=== PATIENT | female | born 1945 | race Caucasian/White ===

== ENCOUNTER 2017-02-07 17:54 | Observation (INO) | payer BC, MEDICARE ==
[~2017-02-07] VITALS: Ht 157.5 cm; Wt 70.0 kg
[~2017-02-07 17:54] MED LIST: ALBUPOW38 PO; ATOR10 PO; LEVA500T33 PO; PRED20 PO; TOPR50TA PO; VENTAER INH
--- NOTE | 2017-02-07 17:55 | PD ---
HPI Chief Complaint: shortness of breath Time Seen by Provider: 17:55 Travel History International Travel<30 days: No Contact w/Intl Traveler<30days: No Traveled to known affect area: No History of Present Illness HPI 71-year-old female came to the emergency room brought by EMS with history of progressive shortness of breath for past few days. Patient says that she was not feeling too well the past few days and thought she probably had worsening asthma. She also had some chills at night. Today she had gone out to have dinner with her friend when while driving she started getting short of breath with palpitations. She started feeling intense chest pressure retrosternally. At that point she decided to stop driving after which she thinks she almost passed out. She was found by friends slumped over the steering wheel and intensely diaphoretic. Currently patient says that feeling has subsided. However she does seem anxious. Patient has history of asthma. She had taken few days of her son's steroid pills. Vital signs are within normal limit. [facility] Past Medical History Narrative Medical List of her past medical, surgical, social and family history was reviewed from the nursing note. Cerebrovascular Accident: Yes (1999 TIA) Diminished Hearing: No Hypertension: Yes Past Surgical History Other Surgery: Yes (C SPINE SX 4 SCREWS) Social History Alcohol Use: No Tobacco Use: No Substance Use: No Allergies-Medications (Allergen,Severity, Reaction): Coded Allergies: No Known Allergies (Verified , 05/28/14) Comments No known drug allergies. Reported Meds & Prescriptions Reported Meds & Active Scripts Active Ventolin Hfa (Albuterol Sulfate) 18 Gm Aero 2 Puff INH Q4HPRN * SHAKE WELL BEFORE USE * Reported [hypertension] Aspirin 81 Mg Chew 81 Mg CHEW DAILY Lipitor (Atorvastatin Calcium) 10 Mg Tab 0 PO DAILY UNKNOWN DOSE Toprol Xl (Metoprolol Succinate) 50 Mg Tabcr 50 Mg PO DAILY Narrative Medication List of her home medications reviewed from the nursing note. Review of Systems Except as stated in HPI: all other systems reviewed are Neg Physical Exam Narrative GENERAL: Awake, alert, moderate distress, SKIN: Focused skin assessment warm/dry. HEAD: Atraumatic. Normocephalic. EYES: Pupils equal and round. No scleral icterus. No injection or drainage. ENT: No nasal bleeding or discharge. Mucous membranes pink and moist. NECK: Trachea midline. No JVD. CARDIOVASCULAR: Regular rate and rhythm. No murmur appreciated. RESPIRATORY: No accessory muscle use. Clear to auscultation. Breath sounds equal bilaterally. GASTROINTESTINAL: Abdomen soft, non-tender, nondistended. Hepatic and splenic margins not palpable. MUSCULOSKELETAL: No obvious deformities. No clubbing. No cyanosis. No edema. NEUROLOGICAL: Awake and alert. No obvious cranial nerve deficits. Motor grossly within normal limits. Normal speech. PSYCHIATRIC: Appropriate mood and affect; insight and judgment normal. Data Data Last Documented VS Vital Signs Date Time Temp Pulse Resp B/P Pulse Ox O2 Delivery O2 Flow Rate FiO2 02/07/17 18:21 88 18 184/97 98 Room Air 02/07/17 17:56 98.4 Orders Electrocardiogram (02/07/17 18:18) Basic Metabolic Panel (Bmp) (02/07/17 18:18) Ckmb (Isoenzyme) Profile (02/07/17 18:18) Complete Blood Count With Diff (02/07/17 18:18) Magnesium (Mg) (02/07/17 18:18) Prothrombin Time / Inr (Pt) (02/07/17 18:18) Troponin I (02/07/17 18:18) Chest, Single Ap (02/07/17 18:18) Ecg Monitoring (02/07/17 18:18) Bilateral Bp Monitoring (02/07/17 18:18) Iv Access Insert/Monitor (02/07/17 18:18) Oximetry (02/07/17 18:18) Oxygen Administration (02/07/17 18:18) Sodium Chloride 0.9% Flush (Ns Flush) (02/07/17 18:30) Ct Pulmonary Angiogram (02/07/17 18:18) B-Type Natriuretic Peptide (02/07/17 18:18) Admit Order (Ed Use Only) (02/07/17 21:52) Labs Laboratory Tests Test 02/07/17 18:10 White Blood Count 7.4 TH/MM3 Red Blood Count 4.22 MIL/MM3 Hemoglobin 12.6 GM/DL Hematocrit 37.2 % Mean Corpuscular Volume 88.1 FL Mean Corpuscular Hemoglobin 29.8 PG Mean Corpuscular Hemoglobin 33.9 % Concent Red Cell Distribution Width 13.5 % Platelet Count 279 TH/MM3 Mean Platelet Volume 8.9 FL Neutrophils (%) (Auto) 84.1 % Lymphocytes (%) (Auto) 12.9 % Monocytes (%) (Auto) 2.5 % Eosinophils (%) (Auto) 0.0 % Basophils (%) (Auto) 0.5 % Neutrophils # (Auto) 6.2 TH/MM3 Lymphocytes # (Auto) 1.0 TH/MM3 Monocytes # (Auto) 0.2 TH/MM3 Eosinophils # (Auto) 0.0 TH/MM3 Basophils # (Auto) 0.0 TH/MM3 CBC Comment DIFF FINAL Differential Comment Prothrombin Time 11.0 SEC Prothromb Time International 1.0 RATIO Ratio Sodium Level 140 MEQ/L Potassium Level 3.7 MEQ/L Chloride Level 103 MEQ/L Carbon Dioxide Level 25.8 MEQ/L Anion Gap 11 MEQ/L Blood Urea Nitrogen 19 MG/DL Creatinine 0.87 MG/DL Estimat Glomerular Filtration 65 ML/MIN Rate Random Glucose 109 MG/DL Calcium Level 9.2 MG/DL Magnesium Level 2.4 MG/DL Total Creatine Kinase 95 U/L Troponin I LESS THAN 0.02 NG/ML B-Type Natriuretic Peptide 30 PG/ML MDM Medical Decision Making Medical Screen Exam Complete: Yes Emergency Medical Condition: Yes Medical Record Reviewed: Yes Interpretation(s) Twelve-lead EKG was reviewed by me. Normal sinus rhythm, normal axis, nonspecific ST-T wave changes. Heart rate of 63 bpm Differential Diagnosis PE, ACS, non-STEMI, pneumonia Narrative Course 6:26 PM awaiting for the blood test results. I've ordered a CT pulmonary angiogram. If the renal function permits this test will be done. Case most probably will be signed out to the oncoming ER physician to follow-up on these results. In my opinion patient will require to be admitted at least and chest pain center. Procedures EKG Prior to Arrival: Eric Crawford MD February 07, 2017 17:55
[2017-02-07 17:56] VITALS: BP 194/81; PULSE 66; RESP 16; TEMP 98.4; O2SAT 99
[2017-02-07] MEDS ORDERED: ASPI81CH CHEW ×2 (18:15)
[2017-02-07] MEDS ORDERED: hypertension (18:17)
[2017-02-07 18:21] VITALS: BP 184/97; PULSE 88; RESP 18; O2SAT 98
[2017-02-07] MEDS ORDERED: SODIUM CHLORIDE 0.9% FLUSH 10 ML FLUSH IVF PRN (18:30)
--- NOTE | 2017-02-07 18:35 | RADRPT ---
EXAM DATE/TIME: 02/07/2017 18:27 [facility] COMPARISON: CHEST SINGLE AP, May 28, 2014, 1:47. INDICATIONS : Chest pain. MEDICAL HISTORY : None. SURGICAL HISTORY : None. ENCOUNTER: Initial ACUITY: 1 day PAIN SCORE: 0/10 LOCATION: Bilateral chest FINDINGS: A single view of the chest demonstrates the lungs to be symmetrically aerated without evidence of mas s, infiltrate or effusion. The cardiomediastinal contours are unremarkable. Osseous structures are intact. CONCLUSION: No acute disease. Benjamín Saucedo MD FACR on February 07, 2017 at 18:33 Board Certified Radiologist. This report was verified electronically.
[2017-02-07 18:39] LABS: AUTOMATED NEUTROPHIL # 6.2 TH/MM3 (1.8-7.7); BASOPHIL % 0.5 % (0.0-2.0); HEMATOCRIT 37.2 % (35.0-46.0); HEMO FLAGS DIFF FINAL; LYMPH % 12.9 % (9.0-44.0); MEAN CELL VOLUME 88.1 FL (80.0-100.0); MEAN CORPUSCULAR HEMOGLOBIN 29.8 PG (27.0-34.0); MEAN CORPUSCULAR HGB CONC 33.9 % (32.0-36.0); MONO % 2.5 % (0.0-8.0); NEUT % 84.1 % (16.0-70.0); PLATELET COUNT 279 TH/MM3 (150-450); RED BLOOD COUNT 4.22 MIL/MM3 (4.00-5.30); RED CELL DISTRIBUTION WIDTH 13.5 % (11.6-17.2); WHITE BLOOD COUNT 7.4 TH/MM3 (4.0-11.0)
[2017-02-07 19:58] LABS: ANION GAP 11 MEQ/L (5-15); BICARBONATE 25.8 MEQ/L (21.0-32.0); BLOOD UREA NITROGEN 19 MG/DL (7-18); CHLORIDE 103 MEQ/L (98-107); GLOMERULAR FILTRATION RATE 65 ML/MIN (>89); MAGNESIUM 2.4 MG/DL (1.5-2.5); POTASSIUM 3.7 MEQ/L (3.5-5.1); SODIUM (NA) 140 MEQ/L (136-145)
[2017-02-07 20:07] LABS: CREATINE KINASE 95 U/L (26-192)
--- NOTE | 2017-02-07 20:59 | PD ---
Data Data Last Documented VS Vital Signs Date Time Temp Pulse Resp B/P Pulse Ox O2 Delivery O2 Flow Rate FiO2 02/07/17 18:21 88 18 184/97 98 Room Air 02/07/17 17:56 98.4 Orders Electrocardiogram (02/07/17 18:18) Basic Metabolic Panel (Bmp) (02/07/17 18:18) Ckmb (Isoenzyme) Profile (02/07/17 18:18) Complete Blood Count With Diff (02/07/17 18:18) Magnesium (Mg) (02/07/17 18:18) Prothrombin Time / Inr (Pt) (02/07/17 18:18) Troponin I (02/07/17 18:18) Chest, Single Ap (02/07/17 18:18) Ecg Monitoring (02/07/17 18:18) Bilateral Bp Monitoring (02/07/17 18:18) Iv Access Insert/Monitor (02/07/17 18:18) Oximetry (02/07/17 18:18) Oxygen Administration (02/07/17 18:18) Sodium Chloride 0.9% Flush (Ns Flush) (02/07/17 18:30) Ct Pulmonary Angiogram (02/07/17 18:18) B-Type Natriuretic Peptide (02/07/17 18:18) Labs Laboratory Tests Test 02/07/17 18:10 White Blood Count 7.4 TH/MM3 Red Blood Count 4.22 MIL/MM3 Hemoglobin 12.6 GM/DL Hematocrit 37.2 % Mean Corpuscular Volume 88.1 FL Mean Corpuscular Hemoglobin 29.8 PG Mean Corpuscular Hemoglobin 33.9 % Concent Red Cell Distribution Width 13.5 % Platelet Count 279 TH/MM3 Mean Platelet Volume 8.9 FL Neutrophils (%) (Auto) 84.1 % Lymphocytes (%) (Auto) 12.9 % Monocytes (%) (Auto) 2.5 % Eosinophils (%) (Auto) 0.0 % Basophils (%) (Auto) 0.5 % Neutrophils # (Auto) 6.2 TH/MM3 Lymphocytes # (Auto) 1.0 TH/MM3 Monocytes # (Auto) 0.2 TH/MM3 Eosinophils # (Auto) 0.0 TH/MM3 Basophils # (Auto) 0.0 TH/MM3 CBC Comment DIFF FINAL Differential Comment Prothrombin Time 11.0 SEC Prothromb Time International 1.0 RATIO Ratio Sodium Level 140 MEQ/L Potassium Level 3.7 MEQ/L Chloride Level 103 MEQ/L Carbon Dioxide Level 25.8 MEQ/L Anion Gap 11 MEQ/L Blood Urea Nitrogen 19 MG/DL Creatinine 0.87 MG/DL Estimat Glomerular Filtration 65 ML/MIN Rate Random Glucose 109 MG/DL Calcium Level 9.2 MG/DL Magnesium Level 2.4 MG/DL Total Creatine Kinase 95 U/L Troponin I LESS THAN 0.02 NG/ML B-Type Natriuretic Peptide 30 PG/ML MDM Supervised Visit with SACHIN: No Narrative Course Patient's endotracheal by previous provider. Please see associated no for further details. In short patient is a 71-year-old female here with complaint of shortness of breath, some chills, palpitations and a near syncopal episode. Previous provider had strong concern for pulmonary embolism versus arrhythmia versus ACS. Signed out to me pending labs and CT pulmonary exam for ultimate admission to medicine. Laboratory workup unremarkable. CT pulmonary angiogram showed no evidence of PE. Degenerative changes of the thoracic spine. Patient will be admitted to medicine for telemetry and cardiac enzymes. Diagnosis Primary Impression: Near syncope Additional Impression: Shortness of breath Admitting Information Admitting Physician Requests: Observation Shanna Escudero MD February 07, 2017 20:59
[2017-02-07] MEDS ORDERED: IOHEXOL 350 MG/ML 10 ML VIAL (for RAD DIAG) IV ONE (21:19)
--- NOTE | 2017-02-07 21:34 | RADRPT ---
EXAM DATE/TIME: 02/07/2017 21:19 [facility] COMPARISON: No previous studies available for comparison. INDICATIONS : Shortness of breath with substernal chest pain for several days. IV CONTRAST: 74 cc Omnipaque 350 (iohexol) IV RADIATION DOSE: 14.32 CTDIvol (mGy) MEDICAL HISTORY : Hypertension. SURGICAL HISTORY : Fusion, cervical. ENCOUNTER: Initial ACUITY: 3 days PAIN SCALE: 6/10 LOCATION: chest TECHNIQUE: Volumetric scanning of the chest was performed using a pulmonary embolism protocol MIP images were re constructed. Using automated exposure control and adjustment of the mA and/or kV according to patien t size, radiation dose was kept as low as reasonably achievable to obtain optimal diagnostic quality images. FINDINGS: The lungs are clear. There is no axillary or mediastinal adenopathy. There is no central pulmonary emboli There is no pericardial effusion or coronary calcifications. That portion of the liver and spleen identified are free of focal defects. Moderate degenerative changes are present in the thoracic spine. CONCLUSION: 1. Negative or central pulmonary emboli 2. Moderate degenerative changes in the thoracic spine. 3. There are no coronary calcifications or pericardial effusion. Benjamín Saucedo MD FACR on February 07, 2017 at 21:30 Board Certified Radiologist. This report was verified electronically.
[2017-02-07 21:57] VITALS: BP 188/75; PULSE 52; RESP 14; O2SAT 95
[2017-02-07] MEDS ORDERED: NALOXONE HCL 0.4 MG/ML AMP IV PRN (23:30)
[2017-02-07] MEDS ORDERED: SENNOSIDES 8.6 MG TAB PO PRN (23:30)
[2017-02-07] MEDS ORDERED: ACETAMINOPHEN 325 MG TAB PO PRN (23:30)
[2017-02-07] MEDS ORDERED: SODIUM CHLORIDE 0.9% FLUSH 10 ML FLUSH IV FLUSH PRN (23:30)
[2017-02-07] MEDS ORDERED: ONDANSETRON HCL 4 MG/2 ML VIAL IVP PRN (23:30)
[2017-02-07] MEDS: SODIUM CHLOR 0.9% 1000 ML INJ 1,000 ML IV SCH (23:53)
[2017-02-07] MEDS: ASPIRIN EC 81 MG TABEC PO SCH (23:53)
[2017-02-07] MEDS: HEPARIN SODIUM - SQ 10,000 UNITS/ML VIAL SQ SCH (23:53)
[2017-02-07 23:54] VITALS: BP 161/68; PULSE 53; RESP 14; O2SAT 98
[2017-02-08] VITALS (10 sets, daily range): BP systolic 134–173; BP diastolic 62–76; PULSE 46–70; RESP 16–20; TEMP 97.8–98.2; O2SAT 94–100
[2017-02-08] MEDS ORDERED: ENALAPRILAT 1.25 MG/ML VIAL IV PUSH PRN (01:30)
[2017-02-08] MEDS ORDERED: amLODIPine BESYLATE 5 MG TAB PO ONE (02:00)
[2017-02-08] MEDS: amLODIPine BESYLATE 5 MG TAB PO SCH (08:25)
[2017-02-08] MEDS: ASPIRIN EC 81 MG TABEC PO SCH (08:25)
[2017-02-08] MEDS: SODIUM CHLORIDE 0.9% FLUSH 10 ML FLUSH IV FLUSH SCH ×2 (08:27→21:00)
--- NOTE | 2017-02-08 08:57 | MH ---
cc: JACEK MARTIN MD DATE OF ADMISSION: 02/07/2017 DATE OF : 1945 CHIEF COMPLAINT On admission shortness of breath and chest pain. HISTORY OF PRESENT ILLNESS This is a pleasant 71-year-old female who has a significant history of asthma and COPD. The patient states that she has had cold all week which involved fever and lots of coughing. She states that she also had not been eating or drinking very much and became very weak. The patient was taking some of her son's steroid pills, trying to see if that would make her feel better but had no antibiotic treatment. The patient went out of the house on day of admission to have dinner with some friends and became very weak and short of breath while driving. The patient states that she had some intense chest pressure, midsternal that radiated into her back. She did become diaphoretic and according to the records was found by friend slumped over her steering wheel. The patient states that the pain went away and she has not had anymore chest pain since admission. The patient states that she still has generalized weakness and fatigue and did not sleep well last night in the hospital. Note, the patient states in her past history that she has had problems with panic attacks, but has not had one recently. PAST MEDICAL HISTORY 1. TIA. 2. Hypertension. 3. Degenerative disc disease. 4. Hyperlipidemia. 5. Panic attacks. PAST SURGICAL HISTORY C-spine with four screws. ALLERGIES None known. MEDICATION Reported medication: Aspirin. Lipitor. Toprol. Active medications: Ventolin inhaler. SOCIAL HISTORY The patient takes no alcohol, tobacco or illicit drugs. REVIEW OF SYSTEMS A 12-point review was done, positives noted are chest pain, cold and fever symptoms, decreased appetite, decreased p.o. intake, generalized weakness and fatigue, small BM in the past two days, otherwise systems are negative or unremarkable. PHYSICAL EXAMINATION VITAL SIGNS: Temperature is 98, pulse between 46 and 50, respirations 17, blood pressure 143/65. 1 o'clock during the a.m. hours, the patient's blood pressure was 173/76. She was given IV medication to bring it down. She is currently on room air. GENERAL: Well-nourished, pleasant female, looks younger than her stated age, resting in the bed, alert and oriented, cooperative and a good historian. SKIN: [place] mucous membranes, warm and dry. HEENT: Atraumatic, normocephalic. PERRLA. No scleral icterus. NECK: Supple. CARDIOVASCULAR: Slow regular rate and rhythm. No murmurs, rubs or gallops audible. No peripheral edema and her pulses are strong and intact. RESPIRATORY: Some mild diminished breath sounds posteriorly but no wheezes, rales or rhonchi. Volumes are low to adequate. GI: Abdomen is flat, soft, nontender, nondistended. Active bowel sounds. MUSCULOSKELETAL: Moves her extremities with purpose. No clubbing. No deformities. No edema. NEUROLOGIC: Equal hand recoil spring winder. Appropriate to questions and answers. Speech is clear. PSYCHIATRIC: Appropriate mood and affect, slightly anxious. Insight and judgment is normal. DIAGNOSTIC DATA WBC count 7.4, RBC 4.22, hemoglobin 12.6, hematocrit 37.2, platelet count 279. The only abnormal in the diff is the neutrophil count percentage is 84.1. PT/INR is 1. Chemistry sodium 140, potassium 3.7, chloride 103, carbon dioxide 25.8. BUN is 19, creatinine 0.87, GFR 65, random glucose 109. Troponins are less than 0.02. BNP is 30. IMAGING STUDIES Chest x-ray shows a normal exam. CT angiography is negative for any pulmonary emboli, moderate degenerative changes of the thoracic spine, no coronary calcifications or pericardial effusions. ASSESSMENT 1. Probable COPD exacerbation with dyspnea. 2. Chest pain, rule out cardiac event. 3. Degenerative disc disease. 4. Acute kidney injury with dehydration. PLAN Admit observation. She will be on a heart healthy diet. The patient has received IV fluids for hydration and encouraged to drink p.o. fluids. 02 as needed. DVT prophylaxis with heparin. A 2D echo has been ordered and is pending. Medications were reconciled. She also has p.r.n. Vasotec for BP uncontrolled and has been placed on Norvasc 5 mg this past a.m. Vital signs are q. 4. Out of bed activity only with assistance. Will consult cardiology for his expert opinion and for any further testing warranted. The patient is full code, full aggressive care and we will follow. Dictated by: KORY Rutledge Jawed Panja, MD ELDER/ANA /7:49 AM /8:15 AM PT SEEN AND EXAMINED ABOVE ON DAY OF ADMISSION, YESTERDAY AM CHART WAS REVIEWED PLAN OF CARE WAS KAREN FORMS DESIGNER ABOVE KAREN RN EXPLAINED AND DW PT ORDERS WERE PUT IN MTDD
--- NOTE | 2017-02-08 09:01 | RADRPT ---
EXAM DATE/TIME: 02/08/2017 08:05 [facility] COMPARISON: No previous studies available for comparison. INDICATIONS : Weakness. MEDICAL HISTORY : Hypercholesterolemia. Hypertension. CVA. Asthma. SURGICAL HISTORY : Neck surgery. ENCOUNTER: Initial ACUITY: 2 days PAIN SCORE: 0/10 LOCATION: Bilateral neck PEAK SYSTOLIC VELOCITIES (cm/sec): ICA/CCA RATIO: Right: 1.6 Left: 1.0 ICA: Right: 112 Left: 114 CCA: Right: 72 Left: 111 ECA: Right: 66 Left: 65 VERTEBRAL: Right: 52 antegrade Left: 61 antegrade Elevated flow velocities and ICA/CCA ratios have been found to correlate with increased degrees of vessel stenosis, calculated as percentage of diameter relative to a normal segment of distal ICA/CCA FINDINGS: RIGHT CAROTID: Mild atherosclerotic plaquing is seen at the bifurcation. No significant stenosis is visualized. The waveforms are within normal limits. There is some tortuosity of the common carotid artery and right internal carotid artery. LEFT CAROTID: Mild atherosclerotic plaquing seen at the bifurcation. No significant stenosis is visualized. The wa veforms are within normal limits. There is tortuosity of the internal carotid artery. VERTEBRAL ARTERIES: Antegrade flow is seen in both vertebral arteries. MISCELLANEOUS: None. CONCLUSION: 1. Mild atherosclerotic plaquing at both carotid bifurcations. 2. No focal high grade or hemodynamically significant stenosis is demonstrated. Keegan Kurtz MD on February 08, 2017 at 8:58 Board Certified Radiologist. This report was verified electronically.
--- NOTE | 2017-02-08 09:59 | MB ---
cc: THU WORLEY DATE OF CONSULTATION 02/08/2017 DATE OF 1945 REASON FOR CONSULTATION Shortness of breath/chest pain/presyncope. HISTORY OF PRESENT ILLNESS 71-year-old female with past medical history significant for hypertension, hyperlipidemia, panic attacks and asthma who presented to the hospital after an episode of sudden onset of shortness of breath, fatigue and chest discomfort. The patient reports she benito been dealing with wheezing and fatigue for the last couple of days, to the point she self-prescribed PO steroids. She reports that on the day of admission she was driving to a friend's house and had a sudden onset of fatigue, shortness of breath, chest discomfort and feelings of passing out. She states that this episode went away by itself. However, afterwards she was having some numbness bilateral lower extremities. On admission to the hospital. EKG is unremarkable and three sets of cardiac markers have been negative. Cardiology has been consulted for other management and evaluation. Of note, she reports that many, many years ago while she was living in [place] she had an episode of anxiety and panic attack with the same description as this time. At that time cardiac workup including exercise stress test was unremarkable. REVIEW OF SYSTEMS Negative except for what is mentioned in the HPI. PAST MEDICAL HISTORY 1. TIA. 2. Hypertension. 3. Degenerative disk disease. 4. Hyperlipidemia. 5. Panic attacks. PAST SURGICAL HISTORY C spine with four screws. ALLERGIES No known drug allergies. HOME MEDICATIONS 1. Aspirin 81 mg p.o. daily. 2. Lipitor 10 mg p.o. daily. 3. Metoprolol 50 mg p.o. daily. 4. Albuterol inhalers p.r.n. for shortness of breath. SOCIAL HISTORY Denies alcohol, tobacco or illicit drug use. FAMILY HISTORY Noncontributory. PHYSICAL EXAMINATION VITAL SIGNS: Temperature 98, respiratory rate 17, pulse 50, blood pressure 143/ 65, O2 sat 94% on room air. GENERAL: Awake, alert, oriented x3, in no acute distress. NECK: No JVD, no carotid bruits. HEART: Regular rate and rhythm. No murmurs, rubs or gallops. LUNGS: Clear to auscultation bilaterally. No wheezes, no rhonchi, no rales. ABDOMEN: Positive bowel sounds. Soft, nontender, nondistended. EXTREMITIES: No cyanosis or edema. Pulses throughout. DATA CBC: Hemoglobin 12, hematocrit 37, platelet count 279. INR 1. Electrolytes: Sodium 140, potassium 3.7, BUN 19, creatinine 0.87. Troponin less than 0.02 x 3. BNP 30. CHEST X-RAY Unremarkable. CTA Negative for PE. CAROTID ULTRASOUND Mild atherosclerotic plaquing of both carotid bifurcations with no high-grade or hemodynamically significant stenosis. EKG Sinus rhythm and the second EKG shows sinus bradycardia. ASSESSMENT AND PLAN 71-year-old female with cardiac risk factors that include hypertension, hyperlipidemia, history of TIA who presents to the hospital with what appears to be an anxiety attack/asthma exacerbation. She reports an atypical chest discomfort that went away by itself and that lasted seconds. Cardiac markers and EKG have been unremarkable so far. Echocardiogram has been ordered and is waiting to be done. Her beta dayanara has been d/c changed to Norvasc. She reports feeling better. She remains afebrile and hemodynamically stable. At this point, given her unclear and atypical, we agree for cardiac work up to further assess her cardiac risk. Will order Lexiscan stress test and await for 2Decho results. In the meantime, would continue Norvasc and aspirin. We will start her home dose of statins and treat her asthma as per primary team. If the Lexiscan stress test is unremarkable, the patient should be able to be discharged home with followup with Cardiology. Thank you for the opportunity to take part in the care of this patient. We will be available on a p.r.n. basis for any other questions or concerns. Thu Worley MD TRAM OPERATOR/SSB /9:32 AM /9:44 AM [facility]
[2017-02-08] MEDS ORDERED: REGADENOSON INJ 0.4 MG/5 ML SYR ONE (11:23)
[2017-02-08] MEDS: HEPARIN SODIUM - SQ 10,000 UNITS/ML VIAL SQ SCH ×2 (11:30→23:30)
--- NOTE | 2017-02-08 13:46 | RADRPT ---
EXAM DATE/TIME: 02/08/2017 11:16 [facility] COMPARISON: No previous studies available for comparison. INDICATIONS : Midsternal chest pain radiating to back with diaphoresis and dyspnea. Angina. DOSE: 27.3 mCi Tc99m Myoview at stress. 8.5 mCi Tc99m Myoview at rest. 0.4 mg Lexiscan STRESS SYMPTOMS: Heart racing and dyspnea. EJECTION FRACTION: 68% MEDICAL HISTORY : Chronic obstructive pulmonary disease. Hypertension. SURGICAL HISTORY : Cervical spine surgery. ENCOUNTER: Initial ACUITY: 1 day PAIN SCALE: 6/10 LOCATION: Midsternal chest TECHNIQUE: The patient underwent pharmacologic stress with infusion of prescribed dose. Continuous ECG tracing was monitored during stress. Gated SPECT imaging was performed after stress and conventional SPECT i maging was performed at rest. The examination was performed on a SPECT/CT scanner, both attenuation and non-corrected datasets were reviewed. FINDINGS: DISTRIBUTION: The maximum perfused segment at stress is in the anterior wall. PERFUSION STUDY: The pattern of perfusion at stress is within normal limits. GATED STUDY: There is intact wall motion and thickening without hypokinetic or dyskinetic segments. CONCLUSION: Unremarkable myocardial perfusion examination. RISK CATEGORY: Low Keegan Kurtz MD on February 08, 2017 at 13:43 Board Certified Radiologist. This report was verified electronically.
--- NOTE | 2017-02-08 14:55 | EKG ---
Date Performed: 02/07/2017 Time Performed: 18:00:03 PTAGE: 71 years EKG: Sinus rhythm NORMAL ECG No signficiant change from prior tracing. Heart rate is slower. First degree AV block. PREVIOUS TRACING : 05/28/2014 01.21 DOCTOR: Sam Jean Interpretating Date/Time 02/08/2017 14:57:45
--- NOTE | 2017-02-08 14:57 | EKG ---
Date Performed: 02/08/2017 Time Performed: 06:05:22 PTAGE: 71 years EKG: SINUS BRADYCARDIA WITH FIRST DEGREE AV BLOCK ABNORMAL ECG PREVIOUS TRACING : 02/07/2017 18.00 DOCTOR: Sam Jean Interpretating Date/Time 02/08/2017 14:57:52
[2017-02-08] MEDS ORDERED: LORazepam 2 MG/ML VIAL IV PUSH ONE (15:15)
--- NOTE | 2017-02-08 17:04 | EC ---
Study Study Date:02/08/2017 STUDY CONCLUSIONS SUMMARY - Left ventricle: The cavity size was normal. Wall thickness was normal. Systolic function was normal. The estimated ejection fraction was in the range of 55% to 65%. Wall motion was normal; there were no regional wall motion abnormalities. - Aortic valve: Valve area: 2.2cm^2(VTI). Valve area: 1.83cm^2 (Vmax). - Mitral valve: Mild regurgitation. - Tricuspid valve: Mild regurgitation. If LV function is below 40, please consider prescribing an ACEI or ARB or document rationale for non-use. PROCEDURE DATA STUDY STATUS: Elective. Procedure: Transthoracic echocardiography. Image quality was good. Scanning was performed from the parasternal, apical, and subcostal acoustic windows. Study completion: The patient tolerated the procedure well. Transthoracic echocardiography. M-mode, complete 2D, complete spectral Doppler, and color Doppler. Height: Height: 62in. Weight: Weight: 153.7lb. Body mass index: BMI: 28.2kg/m^2. Body surface area: BSA: 1.71m^2. Patient status: Inpatient. CARDIAC ANATOMY LEFT VENTRICLE: The cavity size was normal. Wall thickness was normal. Systolic function was normal. The estimated ejection fraction was in the range of 55% to 65%. Wall motion was normal; there were no regional wall motion abnormalities. AORTIC VALVE: Trileaflet; normal thickness leaflets. Doppler: Transvalvular velocity was within the normal range. There was no stenosis. No regurgitation. Valve area: 2.2cm^2(VTI). Indexed valve area: 1.29cm^2/m^2 (VTI). Valve area: 1.83cm^2 (Vmax). Indexed valve area: 1.07cm^2/m^2 (Vmax). Mean gradient: 4mm Hg (S). AORTA: Aortic root: The aortic root was normal in size. MITRAL VALVE: Structurally normal valve. Doppler: Transvalvular velocity was within the normal range. There was no evidence for stenosis. Mild regurgitation. LEFT ATRIUM: The atrium was normal in size. RIGHT VENTRICLE: The cavity size was normal. Wall thickness was normal. PULMONIC VALVE: Doppler: Transvalvular velocity was within the normal range. There was no evidence for stenosis. No regurgitation. TRICUSPID VALVE: Structurally normal valve. Doppler: Transvalvular velocity was within the normal range. Mild regurgitation. PULMONARY ARTERY: The main pulmonary artery was normal-sized. Systolic pressure was within the normal range. RIGHT ATRIUM: The atrium was normal in size. PERICARDIUM: There was no pericardial effusion. SYSTEMIC VEINS: Inferior vena cava: The vessel was normal in size. Patient weight: 153.7lb _Ejection fraction:_ 65-75% _Fractional shortening:_ 32% up to 5Kg 5-11.5Kg 11.6-22.9Kg 23-45Kg 45-57Kg Aortic Root 7-13 <17 13-22 17-27 17-27 LA diam 6-13 <23 24-38 33-47 37-40 RVID 10-17 7-15 7-15 7-18 8-17 LVIDd 12-22 <32 24-38 33-47 37-40 LVPW 2-4 3-6 5-7 6-8 7-8 IVS 2-4 3-6 5-7 6-8 7-8 BASIC MEASUREMENTS ADULT NORMAL Left ventricle LV internal dimension, ED, chordal *40 mm 43-52 level, PLAX LV internal dimension, ES, chordal 27.1 mm 23-38 level, PLAX Fractional shortening, chordal level, 32 % >29 PLAX LV posterior wall thickness, ED 9.18 mm IVS/LVPW ratio, ED 1 <1.3 Ventricular septum Septal thickness, ED 9.16 mm Aortic valve Leaflet separation 20 mm 15-26 Aorta Root diameter, ED 29 mm Left atrium Anterior-posterior dimension 33 mm Anterior-posterior dimension index 1.93 cm/m^2 <2.2 BASIC MEASUREMENTS ADULT NORMAL Aortic valve Leaflet separation 20 mm 15-26 DOPPLER MEASUREMENTS ADULT NORMAL Aortic valve Peak velocity, S 145 cm/s Mean velocity, S 96.1 cm/s VTI, S 27.3 cm Mean gradient, S 4 mm Hg Valve area, VTI 2.2 cm^2 Valve area index, VTI 1.29 cm^2/m^2 Valve area, Vmax 1.83 cm^2 Valve area index, Vmax 1.07 cm^2/m^2 Mitral valve Peak E-wave velocity 59.7 cm/s Peak A-wave velocity 78.5 cm/s Deceleration time *296 ms 150-230 Peak E/A ratio 0.8 Pulmonic valve Peak velocity, S 65.4 cm/s LEGEND: Mean values are shown as u=mean value. Asterisk (*) irving values outside specified normal range. Prepared and signed by Shade Mitchell [id number]
[2017-02-08] MEDS: SODIUM CHLOR 0.9% 1000 ML INJ 1,000 ML IV SCH (18:19)
--- NOTE | 2017-02-08 19:02 | RADRPT ---
EXAM DATE/TIME: 02/08/2017 18:25 [facility] COMPARISON: No previous studies available for comparison. INDICATIONS : TIA. MEDICAL HISTORY : Hypertension. Chronic obstructive pulmonary disease. DDD, Anxiety. SURGICAL HISTORY : Fusion, cervical. ENCOUNTER: Initial ACUITY: 2 day PAIN SCORE: 2/10 LOCATION: Bilateral cranial TECHNIQUE: Multiplanar, multisequence MRI of the brain was performed without contrast. FINDINGS: CEREBRUM: The ventricles are normal for age. No evidence of midline shift, mass lesion, hemorrhage or acute in farction. No extraaxial fluid collections are seen. The pituitary gland and suprasellar cistern are normal in configuration. WHITE MATTER: No significant signal abnormalities are seen in the white matter. POSTERIOR FOSSA: The cerebellum and brainstem are intact. The 4th ventricle is midline. The cerebellopontine angle is unremarkable. The cerebellar tonsils are normal in position. DIFFUSION IMAGING: No focal areas of restricted diffusion are seen. No evidence of acute infarction. EXTRACRANIAL: The visualized portions of the orbits and paranasal sinuses are unremarkable. CONCLUSION: No acute intracranial abnormality. No acute infarction. Mook Salinas MD on February 08, 2017 at 18:58 Board Certified Radiologist. This report was verified electronically.
--- NOTE | 2017-02-08 19:05 | RADRPT ---
EXAM DATE/TIME: 02/08/2017 18:25 [facility] COMPARISON: No previous studies available for comparison. INDICATIONS : CVA. MEDICAL HISTORY : Hypertension. Chronic obstructive pulmonary disease. DDD, Anxiety. SURGICAL HISTORY : Fusion, cervical. ENCOUNTER: Initial ACUITY: 2 day PAIN SCORE: 1/10 LOCATION: Bilateral cranial Please note a normal MRA of the brain does not entirely exclude the possibility of a small aneurysm, nor the possibility of distal intracranial vessel disease. TECHNIQUE: 3D time of flight MRA was performed. Source images, multiplanar STS MIP, and 3D volume MIP reconstru ctions were reviewed. FINDINGS: There is excellent visualization of the major intracranial arteries out to the second-order branch ve ssels. There is no evidence for aneurysm, vessel truncation or stenosis, and no evidence for vascula r malformation. No anterior communicating artery. Small bilateral posterior indicating arteries. Chastity nant left vertebral artery. CONCLUSION: 1. No stenosis or aneurysm. 2. Normal variants as described above. Mook Salinas MD on February 08, 2017 at 19:00 Board Certified Radiologist. This report was verified electronically.
[2017-02-09 00:22] VITALS: BP 134/70; PULSE 66; RESP 18; TEMP 98.6; O2SAT 97
[2017-02-09 03:16] VITALS: O2SAT 93
[2017-02-09] MEDS: SODIUM CHLOR 0.9% 1000 ML INJ 1,000 ML IV SCH (04:06)
[2017-02-09 04:15] VITALS: BP 148/72; PULSE 73; RESP 18; O2SAT 98
[2017-02-09 07:26] VITALS: BP 137/68; PULSE 62; RESP 16; TEMP 97.7; O2SAT 97
[2017-02-09] MEDS: amLODIPine BESYLATE 5 MG TAB PO SCH (08:00)
[2017-02-09] MEDS: SODIUM CHLORIDE 0.9% FLUSH 10 ML FLUSH IV FLUSH SCH (08:00)
[2017-02-09] MEDS: ASPIRIN EC 81 MG TABEC PO SCH (08:00)
--- NOTE | 2017-02-09 08:06 | HHI.PR ---
Subjective Remarks Patient is feeling better patient had a good night sleep Denies any cardiovascular or neurological symptoms No respiratory symptoms except occasional cough dry in nature Review of system for 12 point system otherwise unremarkable Objective Objective Results - Vital Signs Date Time Temp Pulse Resp B/P Pulse Ox O2 Delivery O2 Flow Rate FiO2 02/09/17 07:26 97.7 62 16 137/68 97 02/09/17 04:15 73 18 148/72 98 02/09/17 03:16 93 21 02/09/17 00:22 98.6 66 18 134/70 97 02/08/17 21:33 68 02/08/17 19:34 98.2 70 20 140/66 98 02/08/17 15:44 97.8 69 18 134/62 97 Result Diagram: 02/07/17180902/07/171809 Physical Exam Physical Exam VITAL SIGNS: Reviewed She is currently on room air. GENERAL: Well-nourished, pleasant female, looks younger than her stated age, resting in the bed, alert and oriented, cooperative and a good historian. SKIN: [place] mucous membranes, warm and dry. HEENT: Atraumatic, normocephalic. PERRLA. No scleral icterus. NECK: Supple. CARDIOVASCULAR: Slow regular rate and rhythm. No murmurs, rubs or gallops audible. No peripheral edema and her pulses are strong and intact. RESPIRATORY: Clear to auscultation no wheezes, rales or rhonchi. GI: Abdomen is flat, soft, nontender, nondistended. Active bowel sounds. MUSCULOSKELETAL: Moves her extremities with purpose. No clubbing. No deformities. No edema. NEUROLOGIC: Equal hand grain i farmworker. Appropriate to questions and answers. Speech is clear. PSYCHIATRIC: Appropriate mood and affect, slightly anxious. Insight and judgment is normal. A/P Assessment and Plan 1. Probable COPD exacerbation with dyspnea. 2. Chest pain, rule out cardiac event. 3. Degenerative disc disease. 4. Acute kidney injury with dehydration. PLAN Labs reviewed Radiological data reviewed including MRA MRI and carotid ultrasound reviewed Appreciate cardiology input Reviewed stress test. Medications reviewed. Patient is overall stable plan to discharge her home to be followed by her primary care doctor as outpatient. Discussed with patient Discussed with RN next line DC home today Medications done Dhiraj Dan MD February 09, 2017 08:06
[2017-02-09] MEDS ORDERED: AMLO5 PO (08:10)
--- NOTE | 2017-02-09 08:19 | HHI.DS ---
Discharge Summary Admission Date February 07, 2017 at 21:53 Admitting Diagnosis near syncope, PEGUERO and chest pain (1) Shortness of breath Diagnosis: Principal (2) Near syncope Diagnosis: Principal (3) Chest pain Diagnosis: Principal (4) COPD exacerbation Diagnosis: Principal Brief History This is a pleasant 71-year-old female who has a significant history of asthma and COPD. The patient states that she has had cold all week which involved fever and lots of coughing. She states that she also had not been eating or drinking very much and became very weak. The patient was taking some of her son's steroid pills, trying to see if that would make her feel better but had no antibiotic treatment. Patient was admitted because of the COPD mild exacerbation and syncopal episode. Patient was seen by mussel farmer. CT was ruled out. Patient has a Rocio scan which was within normal limits. head MRI MRA done and also 2-D echo and carotid ultrasound. Which were also within normal limits as per patient age and condition. Patient is overall a stable her breathing is better her chest is clear. She has occasional cough. Will discharge her home with a steroid and antibiotic. For mild bronchitis on admission. CBC/BMP: 02/07/17 1810 02/07/17 1810 Significant Findings Laboratory Tests Test 02/07/17 02/08/17 02/08/17 18:10 00:00 07:05 Neutrophils (%) (Auto) 84.1 % (16.0-70.0) Blood Urea Nitrogen 19 MG/DL (7-18) Estimat Glomerular Filtration 65 ML/MIN (>89) Rate Random Glucose 109 MG/DL (74-106) Troponin I LESS THAN 0.02 LESS THAN 0.02 LESS THAN 0.02 NG/ML NG/ML NG/ML (0.02-0.05) (0.02-0.05) (0.02-0.05) Pt Condition on Discharge: Good Discharge Disposition: Discharge Home Discharge Instructions DIET: Follow Instructions for: Heart Healthy Diet Activities you can perform: Weight Bearing as Len Follow up Referrals: PCP Follow-up - 1 Week New Medications: Azithromycin (Azithromycin) 250 Mg Tab 250 MG PO DIRECTED Take 2 tabs (500 mg) on day 1 then 1 tab daily x 4 days. Infection #6 Ref 0 TAB Prednisone (Prednisone) 10 Mg Tab 10 MG PO DAILY INFLAMMATION #14 Ref 0 TAB Amlodipine (Norvasc) 5 Mg Tab 5 MG PO DAILY HTN #30 TAB Continued Medications: Albuterol Sulfate (Ventolin Hfa) 18 Gm Aero 2 PUFF INH Q4HPRN * SHAKE WELL BEFORE USE * #1 Aspirin (Aspirin) 81 Mg Chew 81 MG CHEW DAILY Ref 0 TAB Atorvastatin (Lipitor) 10 Mg Tab 0 PO DAILY UNKNOWN DOSE Metoprolol Succinate (Toprol Xl) 50 Mg Tabcr 50 MG PO DAILY Discontinued Medications: ([hypertension]) Dhiraj Dan MD February 09, 2017 08:19
[2017-02-09] MEDS ORDERED: AZIT250T3 PO (08:21)
[2017-02-09] MEDS ORDERED: PRED10 PO (08:21)
== END 2017-02-09 10:18 | disposition home or self-care (01) ==
LOC: NEPE 17:54 → NEDA 21:53 → NEPGCP 02-08 00:25
PROVIDERS: ADMIT Specialist; ATTEND Specialist
DX: J44.1 Chronic obstructive pulmonary disease with (acute) exacerbation (principal); E86.0 Dehydration; R00.2 Palpitations; J45.909 Unspecified asthma, uncomplicated; R07.89 Other chest pain; I10 Essential (primary) hypertension; N17.9 Acute kidney failure, unspecified; E78.5 Hyperlipidemia, unspecified; R06.02 Shortness of breath; F41.0 Panic disorder [episodic paroxysmal anxiety]; Z79.899 Other long term (current) drug therapy; Z86.73 Personal history of transient ischemic attack (TIA), and cerebral infarction without residual deficits
CPT/HCPCS: 70544; 70551; 71010; 71275; 76937; 78452; 80048; 82550; 83735; 83880; 84484; 85025; 85610; 93005; 93017; 93306; 93880; 99285; A9502; G0378; J1644; J2060; J2785; J7030; Q9967